=== PATIENT | female | born 1955 | race Caucasian/White ===

== ENCOUNTER 2016-10-23 08:15 | Day surgery (SDC) | payer OTHER ==
[~2016-10-23] VITALS: Ht 157.5 cm; Wt 100.0 kg
[~2016-10-23 08:15] MED LIST: 0.9% Sodium Chloride 1,000 ML IV PRN; No current meds; Sodium Chloride LOK Flush 10 mL Syringe IV PRN; fentaNYL-PF 50 mCg/mL 2 mL Inj IVPUSH PRN
[2016-10-23 08:35] VITALS: BP 153/86; PULSE 80; RESP 16; O2SAT 98
[2016-10-23 09:53] VITALS: BP 141/66; PULSE 77; RESP 16; O2SAT 99
[2016-10-23 10:02] VITALS: BP 128/67; PULSE 69; RESP 16; O2SAT 97
[2016-10-23 10:07] VITALS: BP 128/68; PULSE 70; RESP 16; O2SAT 100
--- NOTE | 2016-10-23 10:26 | ENDO ---
[address] [address] ENDOSCOPY PROCEDURE PATIENT: CHERRY MILLAN : 1955 MR#: [id number] ADMIT: 10/23/2016 JOB ID: [id number] DATE: 10/23/2016 PROCEDURE: Colonoscopy. INDICATIONS: Screening. The patient's ASA classification is 2. Mallampati score is 2. MEDICATIONS: 1. Versed 4 mg. 2. Fentanyl 75 mcg. INSTRUMENT USED: PCF H 180 AL. PREPARATION QUALITY: Was good. PROCEDURE DETAILS: After informed consent was obtained, the patient was brought into the GI suite, where she was placed on oxygen via nasal cannula and monitored with continuous pulse oximeter, telemetry and blood pressure monitoring. A time-out was performed. Then, she was placed in the left lateral decubitus position and medications were administered for sedation. A digital rectal exam was performed and was unremarkable. The colonoscope was then inserted into the rectum and advanced under direct visualization to the cecum, which was identified by the presence of the ileocecal valve and appendiceal orifice. Once the cecum was reached, the colonoscope was withdrawn back in the rectum, and mucosa and lumen were examined. In the rectum, retroflexion was performed. Following retroflexion, remaining air in the rectum was suctioned and the procedure was completed. FINDINGS: 1. In the transverse colon, there was an approximately 3-4 mm sessile polyp that was removed with cold snare. 2. In the left side of the colon, there were scattered diverticula. IMPRESSION: 1. Transverse colon polyp. 2. Left-sided diverticulosis. RECOMMENDATIONS: 1. Repeat colonoscopy in five years, sooner if symptoms dictate. 2. Fiber rich diet. 3. Followup in GI clinic. COMPLICATIONS: None. ESTIMATED BLOOD LOSS: Less than 5 mL.
--- NOTE | 2016-10-24 16:22 | PATH ---
SURGICAL PATHOLOGY Attending Physician:Dave Valdez CASE STATUS: Signed Out PATIENT NAME: CHERRY MILLAN PID: [id number] : 1955 DATE COLLECTED:10/23/2016 17:12 SPECIMEN: Colon, Biopsy CLINICAL HISTORY: 1). TRANSVERSE COLON POLYP FINAL DIAGNOSIS: Transverse Colon, Polyp, Biopsy: Tubular adenoma; negative for high-grade dysplasia. ICD10: K63.5 GROSS DESCRIPTION: The specimen is received in one formalin filled container labeled with the patient's name, sublabeled "transverse colon polyp" and consists of a 0.2 x 0.2 x 0.2 CM portion of tissue which is entirely submitted in one cassette. 10/23/2016 [facility] ICD-9 CODES: CPT CODES: 1: 86175 Electronically Signed Out Landy Ortega MD [facility] Pathology [facility], [place] [address] Technical component performed at [facility], [address] [place] [address] Ave[address], [address]
== END 2016-10-23 23:59 | disposition home or self-care (01) ==
LOC: END 08:15 → EDUNIT# 09:00 → END 23:59
PROVIDERS: ATTEND Internal Medicine Gastroenterology
DX: Z12.11 Encounter for screening for malignant neoplasm of colon (principal); Z86.010 Personal history of colon polyps; Z85.828 Personal history of other malignant neoplasm of skin; D12.3 Benign neoplasm of transverse colon; K57.30 Diverticulosis of large intestine without perforation or abscess without bleeding; K21.9 Gastro-esophageal reflux disease without esophagitis; F41.8 Other specified anxiety disorders; G47.33 Obstructive sleep apnea (adult) (pediatric)
CPT/HCPCS: 45385; G0500; J3010; J7030